=== PATIENT | female | born 1950 | race Caucasian/White ===

== ENCOUNTER 2021-02-11 19:14 | Emergency (ER) | payer MEDICARE, BC ==
[~2021-02-11] VITALS: Ht 152.4 cm; Wt 68.0 kg
[2021-02-11] MEDS ORDERED: ACETAMINOPHEN 325 MG TAB ONE (19:53)
[2021-02-11] MEDS ORDERED: CASIRIVIMAB/IMDEVIMAB 10 ML in SODIUM CHLORIDE 0.9% 100 ML IV ONE (20:00)
[2021-02-11] MEDS ORDERED: ACETAMINOPHEN 325 MG TAB PO ONE (20:15)
== END 2021-02-11 21:02 | disposition home or self-care (01) ==
LOC: ER 19:54
DX: U07.1 COVID-19 (principal); I10 Essential (primary) hypertension
CPT/HCPCS: 99283